=== PATIENT | female | born 1985 | race Caucasian/White ===

== ENCOUNTER 2016-08-29 13:02 | Emergency (ER) | payer OTHER ==
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
--- NOTE | 2016-08-29 15:46 | ED ORDER SUMMARY ---
..... Patient: KOBI SCHNEIDER OrderSheet [facility] VisitID: [id number] [address] [place] [address] 31y, F Registration Date/Time: 08/29/2016 ORDER SHEET Weight: 70.3 kg (stated) Allergies: Biaxin, CT Contrast GENERAL ORDERS: UA-Culture if indicated Urgent (15:45 08/29/2016 HBivens A.R.N.P.) (Ack 15:51 RKaruga) (17:00 LSullivan R.N.) Urine Drug Screen Urgent (15:45 08/29/2016 HBivens A.R.N.P.) (Ack 15:54 RKaruga) (17:00 LSullivan R.N.) Urine Urgent (15:45 08/29/2016 HBivens A.R.N.P.) (Ack 15:51 RKaruga) (17:00 LSullivan R.N.) MEDICATION ORDERS: Zofran ODT PO 4 mg (NOW) (13:27 08/29/2016 HBivens A.R.N.P.) (Ack 13:33 ASchmuck) (13:36 ASchmuck) Plan B PO 1.5 mg (NOW) (15:38 08/29/2016 HBivens A.R.N.P.) (17:11 TJayne R.N.) Ceftriaxone IM 250 mg (NOW) (15:38 08/29/2016 HBivens A.R.N.P.) (17:11 TJayne R.N.) - (Reglan 10mg im stat) (15:39 08/29/2016 HBivens A.R.N.P.) (16:31 ASchmuck) IV FLUIDS: ORDER SHEET NOTES: [Electronically signed by Tiffany Onofre R.N. (17:44 08/29/2016)] [Electronically signed by Cheryl Orona A.R.N.P. (19:04 08/29/2016)] [Electronically locked/signed by Tiffany Onofre R.N. (17:44 08/29/2016)]
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
--- NOTE | 2016-08-29 15:46 | ED ORDER SUMMARY ---
..... Patient: KOBI SCHNEIDER OrderSheet [facility] VisitID: [id number] [address] [place] [address] 31y, F Registration Date/Time: 08/29/2016 ORDER SHEET Weight: 70.3 kg (stated) Allergies: Biaxin, CT Contrast GENERAL ORDERS: UA-Culture if indicated Urgent (15:45 08/29/2016 HBivens A.R.N.P.) (Ack 15:51 RKaruga) (17:00 LSullivan R.N.) Urine Drug Screen Urgent (15:45 08/29/2016 HBivens A.R.N.P.) (Ack 15:54 RKaruga) (17:00 LSullivan R.N.) Urine Urgent (15:45 08/29/2016 HBivens A.R.N.P.) (Ack 15:51 RKaruga) (17:00 LSullivan R.N.) MEDICATION ORDERS: Zofran ODT PO 4 mg (NOW) (13:27 08/29/2016 HBivens A.R.N.P.) (Ack 13:33 ASchmuck) (13:36 ASchmuck) Plan B PO 1.5 mg (NOW) (15:38 08/29/2016 HBivens A.R.N.P.) (17:11 TJayne R.N.) Ceftriaxone IM 250 mg (NOW) (15:38 08/29/2016 HBivens A.R.N.P.) (17:11 TJayne R.N.) - (Reglan 10mg im stat) (15:39 08/29/2016 HBivens A.R.N.P.) (16:31 ASchmuck) IV FLUIDS: ORDER SHEET NOTES: [Electronically signed by Tiffany Onofre R.N. (17:44 08/29/2016)] [Electronically signed by Cheryl Orona A.R.N.P. (19:04 08/29/2016)] [Electronically locked/signed by Tiffany Onofre R.N. (17:44 08/29/2016)]
--- NOTE | 2016-08-29 19:04 | ED MAR SUMMARY ---
..... Medication Administration Record [facility] [address] [place] [address] Patient: KOBI SCHNEIDER Visit ID: [id number] 31y, F Weight: 70.3 kg Height/Length: 64 in BMI: 26.6 ALLERGIES: Biaxin, CT Contrast Given 13:36 08/29/2016 Neelam Parrish, Medication Administered: ZOFRAN ODT [PO] (ONDANSETRON), Dose: 4 mg Oral Disintegrating Tablets PO. Medication Ordered: Zofran ODT PO 4 mg (NOW). Given 16:31 08/29/2016 Neelam Parrish, Medication Administered: REGLAN [IM] (METOCLOPRAMIDE HCL), Dose: 10 mg IM. Medication Ordered: - (Reglan 10mg im stat). Given 16:43 08/29/2016 Tiffany Onofre R.N. Medication Administered: CEFTRIAXONE [IM], Dose: 250 mg IM. Medication Ordered: Ceftriaxone IM 250 mg (NOW). Given 16:56 08/29/2016 Tiffany Onofre RJm Medication Administered: PLAN B [PO] (LEVONORGESTREL), Dose: 1.5 mg Tablets PO. Medication Ordered: Plan B PO 1.5 mg (NOW).
--- NOTE | 2016-08-29 19:04 | ED MED RECONCILIATION SUMMARY ---
Patient: KOBI SCHNEIDER Medication Reconciliation Report [facility] VisitID: [id number] [address] [place] [address] 31y, F Registration Date/Time: 08/29/2016 Weight: 70.3 kg Height/Length: 64 in. BMI: 26.6 ALLERGIES: Biaxin, CT Contrast The patient's Home Medications are listed below: THE FOLLOWING MEDICATIONS NEED TO BE RECONCILED: Topamax Oral (200 mg) 2 tablets, daily Zyrtec 10mg daily The source(s) of the original Home Medication information: patient The following Medications were given to the patient in the Emergency Department: Zofran ODT [PO] PO 4 mg, administered: 08/29/2016 1:36:00 PM Reglan [IM] IM 10 mg, administered: 08/29/2016 4:31:00 PM Plan B [PO] PO 1.5 mg, administered: 08/29/2016 4:56:00 PM Ceftriaxone [IM] IM 250 mg, administered: 08/29/2016 4:43:00 PM The following Medications were prescribed to the patient: Zofran 4 mg: Take 1 orally every six hours as needed for nausea/vomiting. Dispense ten (10). No refills. Substitution is permissible. -- Cheryl Orona A.R.N.P. Flagyl 500 mg: Take 1 tablet orally every 12 hours for 7 days. No refill. Substitution is permissible. -- Cheryl Orona A.R.NGeovanyP. Zithromax 500 mg tablets: take 2 orally initially, for the next day. Total course 1 day. No refills. -- Cheryl Orona A.R.N.P.
--- NOTE | 2016-08-29 19:04 | ED MED RECONCILIATION SUMMARY ---
Patient: KOBI SCHNEIDER Medication Reconciliation Report [facility] VisitID: [id number] [address] [place] [address] 31y, F Registration Date/Time: 08/29/2016 Weight: 70.3 kg Height/Length: 64 in. BMI: 26.6 ALLERGIES: Biaxin, CT Contrast The patient's Home Medications are listed below: THE FOLLOWING MEDICATIONS NEED TO BE RECONCILED: Topamax Oral (200 mg) 2 tablets, daily Zyrtec 10mg daily The source(s) of the original Home Medication information: patient The following Medications were given to the patient in the Emergency Department: Zofran ODT [PO] PO 4 mg, administered: 08/29/2016 1:36:00 PM Reglan [IM] IM 10 mg, administered: 08/29/2016 4:31:00 PM Plan B [PO] PO 1.5 mg, administered: 08/29/2016 4:56:00 PM Ceftriaxone [IM] IM 250 mg, administered: 08/29/2016 4:43:00 PM The following Medications were prescribed to the patient: Zofran 4 mg: Take 1 orally every six hours as needed for nausea/vomiting. Dispense ten (10). No refills. Substitution is permissible. -- Cheryl Orona A.R.N.P. Flagyl 500 mg: Take 1 tablet orally every 12 hours for 7 days. No refill. Substitution is permissible. -- Cheryl Orona A.R.NGeovanyP. Zithromax 500 mg tablets: take 2 orally initially, for the next day. Total course 1 day. No refills. -- Cheryl Orona A.R.N.P.
--- NOTE | 2016-08-29 19:04 | ED MAR SUMMARY ---
..... Medication Administration Record [facility] [address] [address] Patient: KOBI SCHNEIDER Visit ID: [id number] 31y, F Weight: 70.3 kg Height/Length: 64 in BMI: 26.6 ALLERGIES: Biaxin, CT Contrast Given 13:36 08/29/2016 Neelam Parrish, Medication Administered: ZOFRAN ODT [PO] (ONDANSETRON), Dose: 4 mg Oral Disintegrating Tablets PO. Medication Ordered: Zofran ODT PO 4 mg (NOW). Given 16:31 08/29/2016 Neelam Parrish, Medication Administered: REGLAN [IM] (METOCLOPRAMIDE HCL), Dose: 10 mg IM. Medication Ordered: - (Reglan 10mg im stat). Given 16:43 08/29/2016 Tiffany Onofre R.N. Medication Administered: CEFTRIAXONE [IM], Dose: 250 mg IM. Medication Ordered: Ceftriaxone IM 250 mg (NOW). Given 16:56 08/29/2016 Tiffany Onofre RJm Medication Administered: PLAN B [PO] (LEVONORGESTREL), Dose: 1.5 mg Tablets PO. Medication Ordered: Plan B PO 1.5 mg (NOW).
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
== END 2016-08-29 17:00 | disposition home or self-care (01) ==
LOC: ED SRH 13:02
DX: T76.21XA Adult sexual abuse, suspected, initial encounter (principal); Y92.009 Unspecified place in unspecified non-institutional (private) residence as the place of occurrence of the external cause; R11.2 Nausea with vomiting, unspecified; R51 Headache; I10 Essential (primary) hypertension; E05.00 Thyrotoxicosis with diffuse goiter without thyrotoxic crisis or storm; F17.210 Nicotine dependence, cigarettes, uncomplicated
CPT/HCPCS: 90004; 92760; 92761; 92762; 92763; 92764; 92765; 92766; 92767; 93070